=== PATIENT | female | born 2000 | race Caucasian/White ===

== ENCOUNTER 2023-09-27 13:32 | Emergency (ER) | payer MEDICAID ==
[~2023-09-27] VITALS: Ht 160 cm; Wt 67.0 kg
[2023-09-27 14:00] VITALS: O2SAT 100
[2023-09-27] MEDS ORDERED: ONDANSETRON 4MG ODT PO ONE (14:30)
[2023-09-27] MEDS ORDERED: PANTOPRAZOLE 40MG DR TABLET PO ONE (14:30)
[2023-09-27] MEDS: MAGNESIUM/ALUMINUM HYDROXIDE/SIMETHICONE 30ML UDC PO NR (14:30)
[2023-09-27] MEDS ORDERED: MAGNESIUM/ALUMINUM HYDROXIDE/SIMETHICONE 30ML UDC PO ONE (14:30)
[2023-09-27] MEDS: PANTOPRAZOLE 40MG DR TABLET PO NR (14:30)
[2023-09-27] MEDS: ONDANSETRON 4MG ODT PO NR (14:30)
[2023-09-27 14:45] LABS: BASOPHILS % 0.7 % (0.0-2.0); EOSINOPHILS % 0.2 % (0.0-5.0); HEMATOCRIT. 40.4 % (36.0-48.0); HEMOGLOBIN. 13.5 g/dL (12.0-16.0); LYMPHOCYTES % 21.7 % (20.0-50.0); MEAN CORPUSCULAR HEMOGLOBIN 29.6 pg (28.0-32.0); MEAN CORPUSCULAR HGB CONC 33.6 g/dL (31.0-37.0); MEAN CORPUSCULAR VOLUME 88.3 fL (81.0-99.0); MEAN PLATELET VOLUME 8.9 fl (7.4-10.4); MONOCYTES % 6.5 % (2.0-8.0); NEUTROPHILS % 70.9 % (40.0-76.0); PLATELET 307 x1000/uL (130-400); RED BLOOD CELL COUNT 4.57 mill/uL (4.2-5.4); WHITE BLOOD COUNT 8.8 x1000/uL (4.5-11.0)
[2023-09-27 14:49] LABS: CARBON DIOXIDE 24 mEq/L (21-32)
[2023-09-27 14:50] LABS: CALCIUM 9.4 mg/dL (8.7-10.4)
[2023-09-27 14:54] LABS: CREATININE 0.7 mg/dL (0.6-1.0); GLUCOSE 89 mg/dL (70-105)
[2023-09-27 14:55] LABS: UREA NITROGEN BLOOD 8 mg/dL (9-23)
[2023-09-27 14:56] LABS: ALANINE AMINOTRANSFERASE 23 IU/L (10-49); ALBUMIN 4.7 g/dL (3.2-4.8); ASPARTATE AMINOTRANSFERASE 16 IU/L (<34)
[2023-09-27 14:57] LABS: BILIRUBIN DIRECT 0.2 mg/dL (<=3.0); BILIRUBIN TOTAL 0.6 mg/dL (0.1-1.0); PROTEIN TOTAL 7.6 g/dL (6.0-8.3)
[2023-09-27 15:07] LABS: CHLORIDE 109 mEq/L (98-107); SODIUM 140 mEq/L (136-145)
[2023-09-27 16:23] LABS: HCG SCREEN NEGATIVE
[2023-09-27] MEDS ORDERED: LOPE2CAP MT (16:43)
[2023-09-27] MEDS ORDERED: FAMO-135 MT (16:43)
[2023-09-27] MEDS ORDERED: LACT1CAP78 MT (16:43)
[2023-09-27] MEDS ORDERED: MAG-55 MT (16:46)
[2023-09-27 17:14] VITALS: BP 124/78; PULSE 68; RESP 16; TEMP 98.3
== END 2023-09-27 17:34 | disposition home or self-care (01) ==
LOC: ER 13:32
DX: K52.9 Noninfective gastroenteritis and colitis, unspecified (principal)
CPT/HCPCS: 99284; 80076; 80048; 84703; 83690; 85025; 36415; Q0162